=== PATIENT | female | born 1975 | race Two or more races ===

== ENCOUNTER 2023-04-09 06:59 | Day surgery (SDC) | payer OTHER ==
[2023-04-07 11:14] LABS: Urine Bacteria FEW /hpf (None Seen); Urine Blood Negative /uL (Negative); Urine Mucus FEW (None Seen); Urine WBC 2 /hpf (0 - 5)
[2023-04-07 11:26] LABS: Basophils # (auto) 0 10 ^3/uL (0-0.2); Basophils % (auto) 0.6 % (0.0-2.0); Eosinophils # (auto) 0.2 10 ^3/uL (0-0.8); Eosinophils % (auto) 3.3 % (0.0-7.0); Hematocrit 32.7 % (36.0-46.0); Hemoglobin 10.8 g/dL (12.2-16.2); Lymphocytes # (auto) 1.5 10 ^3/uL (0.4-5.4); Lymphocytes % (auto) 28.2 % (10.0-50.0); Mean Corpuscular Hemoglobin 28.3 pg (28.0-32.0); Mean Corpuscular Hgb Conc. 32.9 g/dL (32.0-36.0); Mean Corpuscular Volume 86.1 fL (80.0-100.0); Monocytes # (auto) 0.4 10 ^3/uL (0-1.3); Monocytes % (auto) 8.3 % (0.0-12.0); Neutrophils # (auto) 3.1 10 ^3/uL (1.6-8.6); Neutrophils % (auto) 59.6 % (37.0-80.0); Red Cell Distribution Width 14.1 % (11.8-14.3); White Blood Cell 5.3 10^3/uL (4.4-10.8)
[2023-04-07 11:38] LABS: INR 1.08 (0.9-1.15); Partial Thromboplastin Time 30.1 SEC (24.5-34.5)
[2023-04-07 12:00] LABS: Albumin 3.5 g/dL (3.4-5.0); Calcium 8.4 mg/dL (8.5-10.1); Potassium 3.9 mmol/L (3.5-5.1)
[2023-04-07 12:03] LABS: BUN/Creatinine Ratio 14.3 (10.0-20.0); Bilirubin, Total 1.1 mg/dL (0.2-1.0)
[~2023-04-09] VITALS: Ht 165.1 cm; Wt 69.4 kg
[~2023-04-09 06:59] MED LIST: HYDR-4188 OR
[2023-04-09] MEDS ORDERED: ceFAZolin 1GM/50ML 100 ML IV ONE (07:08)
[2023-04-09] MEDS ORDERED: ZOFR4T PO (08:42)
[2023-04-09] MEDS ORDERED: HYDR-4902 PO (08:42)
[2023-04-09] MEDS ORDERED: ONDANSETRON HCL 4 MG/2 ML VIAL IV PRN (08:45)
[2023-04-09] MEDS ORDERED: LACTATED RINGER'S 1,000 ML IV SCH (08:45)
[2023-04-09] MEDS ORDERED: MIDAZOLAM HCL 2MG/2ML 2ml VIAL (1mg/ml) ONE (08:53)
[2023-04-09] MEDS ORDERED: MEPERIDINE HCL (25 MG/ML) 1ML VIAL ONE (08:53)
[2023-04-09] MEDS ORDERED: fentaNYL CITRATE 100 MCG/2 ML VL ONE (08:53)
[2023-04-09] MEDS ORDERED: DexAMETHasone SOD PHOS 10MG/1ML VIAL INJ ONE (09:13)
[2023-04-09] MEDS ORDERED: PROPOFOL 10 MG/ML 20 ML IV ONE (09:33)
[2023-04-09 10:14] VITALS: BP 126/74
== END 2023-04-09 10:16 | disposition home or self-care (01) ==
LOC: SUR 06:59
PROVIDERS: ATTEND Obstetrics & Gynecology
DX: N93.9 Abnormal uterine and vaginal bleeding, unspecified (principal); D64.9 Anemia, unspecified; Z90.49 Acquired absence of other specified parts of digestive tract; Z98.51 Tubal ligation status
CPT/HCPCS: 36415; 58563; 80053; 81001; 81025; 84702; 85025; 85610; 85730; 86850; 86900; 86901; J0690; J1100; J2175; J2250; J2704; J3010